=== PATIENT | male | born 1995 | race Two or more races ===

== ENCOUNTER 2021-07-30 20:24 | Emergency (ER) | payer SELFPAY ==
[~2021-07-30] VITALS: Ht 167.6 cm; Wt 67.6 kg
--- NOTE | 2021-07-30 20:29 | NUR ---
PT [facility] C/O ETOH BS 144 . PT RESPONSIVE TO PAIN. PT TOLERATING R/A AT 94% WITH NO SOB. CONNECTED PT TO POX AND MONITOR.
--- NOTE | 2021-07-30 21:01 | NUR ---
URINE SENT TO LAB
--- NOTE | 2021-07-30 21:04 | NUR ---
URINE COLLECTED AND SENT TO LAB
[2021-07-30 21:27] LABS: BASOPHILS % (AUTO) 0.6 % (0.0-2.0); EOSINOPHILS % (AUTO) 2.3 % (0.0-6.0); HEMATOCRIT 46 % (39-51); HEMOGLOBIN 15.4 g/dL (13.5-17.5); LYMPHOCYTES # (AUTO) 2.7 K/uL (0.8-4.8); LYMPHOCYTES % (AUTO) 43.5 % (20.0-44.0); MEAN CORPUSCULAR HGB CONC 34 g/dl (31.0-36.0); MEAN CORPUSCULAR VOLUME 95 fL (80-96); MONOCYTES # (AUTO) 0.4 K/uL (0.1-1.30); MONOCYTES % (AUTO) 6.1 % (2.0-12.0); NEUTROPHILS # (AUTO) 2.9 K/uL (1.8-8.9); NEUTROPHILS % (AUTO) 47.5 % (43.0-81.0); PLATELET COUNT (AUTO) 373 K/uL (150-450); RED BLOOD CELL COUNT(AUTO) 4.78 MIL/uL (4.5-6.0); WHITE BLOOD COUNT (AUTO) 6.2 K/uL (4.3-11.0)
[2021-07-30 21:39] LABS: BILIRUBIN,URINE NEGATIVE (NEGATIVE); COLOR,URINE YELLOW (YELLOW); LEUKOCYTE ESTERASE ,URINE NEGATIVE (NEGATIVE); NITRITE, URINE NEGATIVE (NEGATIVE); PH,URINE 6.5 (5.0-8.0); PROTEIN,URINE NEGATIVE (NEGATIVE); UGLUCOSE NEGATIVE (NEGATIVE); UROBILINOGEN,URINE 0.2 EU/dL (0.2)
[2021-07-30 21:47] LABS: CALCIUM, SERUM 8.4 mg/dL (8.5-10.1); CARBON DIOXIDE 23 mmol/L (21-32); CHLORIDE 100 mmol/L (98-107); CREATININE 0.8 mg/dL (0.6-1.3); GLUCOSE 114 mg/dL (74-106); POTASSIUM 3.2 mmol/L (3.5-5.1); SODIUM SERUM 140 mmol/L (136-145); UREA NITROGEN, BLOOD 9 mg/dL (7-18)
[2021-07-30 21:54] LABS: ALANINE AMINOTRANSFERASE 515 U/L (12-78); ALCOHOL, BLOOD 390 mg/dL (0-0); ALKALINE PHOSPHATASE 187 U/L (46-116); ASPARTATE AMINOTRANSFERASE 412 U/L (15-37); BILIRUBIN,DIRECT 0.1 mg/dL (0.0-0.2); BILIRUBIN,TOTAL 0.2 mg/dL (0.2-1.0); TOTAL PROTEIN, SERUM 8.2 g/dL (6.4-8.2)
[2021-07-30 21:59] LABS: ACETAMINOPHEN < 2 ug/ml (10-30)
--- NOTE | 2021-07-30 23:32 | NUR ---
PT AWAKE A/OX1. SLURRED SPEECH NOTED. NO N/V/D. VSS. WILL CONT TO MONITOR.
--- NOTE | 2021-07-31 02:10 | NUR ---
Patient discharged to home in stable condition. Written and verbal after care instructions given. Patient verbalizes understanding of instruction. PT ambulatory with a steady gait
[2021-07-31 02:12] VITALS: BP 131/71
== END 2021-07-31 02:13 | disposition home or self-care (01) ==
LOC: EDBD 20:29 → ER 20:29
DX: G93.40 Encephalopathy, unspecified (principal)
CPT/HCPCS: 36415; 80048-TC; 80076-TC; 85025-TC; G0480